=== PATIENT | female | born 1960 | race Caucasian/White ===

== ENCOUNTER → 2021-03-29 14:18 | Outpatient (CLI) | payer OTHER, SELFPAY ==
--- NOTE | 2021-03-29 | DI.RAD.S_ITS ---
PROCEDURE: XR KNEE LT 1TO2V INDICATIONS: Internal Derangment TECHNIQUE: 2 views of the knee were acquired. COMPARISON: None. FINDINGS: Bones: No fractures or dislocations. No suspicious bony lesions. Soft tissues: No joint effusion. No suspicious soft tissue calcifications. IMPRESSION: No acute osseous abnormality. Dictated by: Juan Antonio Salmon M.D. on 03/29/2021 at 16:06 Approved by: Juan Antonio Salmon M.D. on 03/29/2021 at 16:06
== END ==
PROVIDERS: PCP Physician Assistant; Referring Provider Physician Assistant; Visit Provider Physician Assistant
DX: M23.92 Unspecified internal derangement of left knee (principal)
CPT/HCPCS: 73560

== ENCOUNTER → 2021-04-24 07:23 | Outpatient (CLI) | payer OTHER, SELFPAY ==
--- NOTE | 2021-04-24 | DI.MRI.S_ITS ---
PROCEDURE: MR KNEE LT WO CON INDICATIONS: Unspecified internal derangement of left knee TECHNIQUE: Noncontrast sagittal PD fast spin echo and T2 fast spin echo with fat saturation, sagittal 3-D FLASH with fat saturation; coronal T1 spin echo and PD fast spin echo with fat saturation, and axial PD fast spin echo with fat saturation through the knee. COMPARISON: [facility], CR, XR KNEE LT 1TO2V, 03/29/2021, 14:16. FINDINGS: Image quality: Excellent. Menisci: Medial extrusion of the medial meniscus. Linear oblique and amorphous high signal intensity within the medial meniscal body and posterior horn is present demonstrating superior and inferior articular surface extension, indicating complex tearing. Lateral meniscus is intact. Cruciate ligaments: The anterior and posterior cruciate ligaments appear intact. Medial structures: The medial collateral ligament appears intact. Visualized portions of the pes anserinus tendons appear normal. There is mild T2 signal elevation within and adjacent to the tibial insertion of the semimembranosus. No abnormal bursal fluid. Lateral structures: The lateral collateral ligament demonstrates a small focus of high signal intensity at the femoral origin. The long and short heads of the biceps femoris tendon appear intact. The popliteus tendon appears normal. Iliotibial band appears normal. Anterior structures: The quadriceps and patellar tendons appear intact. Patellar alignment is normal. No femoral trochlear dysplasia or ventral trochlear prominence. No edema in the infrapatellar fat pad. Bones and cartilage: No bone marrow contusions or fractures. Mild tricompartmental periarticular osteophyte formation. Mild articular cartilage loss diffusely overlies the weight-bearing aspects of the medial femoral condyle and medial tibial plateau. Joint space: There is a small knee joint effusion and a small Jimenez's cyst. Normal appearing synovial plicae are incidentally noted. IMPRESSION: 1. Tricompartmental osteoarthritis with associated articular cartilage loss. 2. Medial meniscal tearing. 3. Low-grade partial thickness lateral collateral ligament tear. 4. Insertional tendinitis of the semimembranosus. 5. Knee joint effusion and Jimenez's cyst. Dictated by: Claire Bond M.D. on 04/24/2021 at 9:37 Approved by: Claire Bond M.D. on 04/24/2021 at 9:39
== END ==
PROVIDERS: PCP Physician Assistant; Referring Provider Physician Assistant; Visit Provider Physician Assistant
DX: S83.242A Other tear of medial meniscus, current injury, left knee, initial encounter (principal); S83.422A Sprain of lateral collateral ligament of left knee, initial encounter; M17.12 Unilateral primary osteoarthritis, left knee; M25.462 Effusion, left knee; M71.22 Synovial cyst of popliteal space [Baker], left knee
CPT/HCPCS: 73721

== ENCOUNTER → 2025-03-10 06:34 | Outpatient (CLI) | payer MEDICARE, OTHER, SELFPAY ==
--- NOTE | 2025-03-10 06:37 | DI.MRI.S_ITS ---
PROCEDURE: MR SHOULDER RT WO CON INDICATIONS: impingement syndrome of right shoulder TECHNIQUE: Noncontrast oblique coronal T2 fast spin echo with fat saturation, oblique sagittal T1 spin echo and T2 fast spin echo with fat saturation, axial T1 spin echo and T2 fast spin echo with fat saturation through the shoulder. COMPARISON: None. FINDINGS: Image quality: Excellent. Rotator cuff: Moderate supraspinatus and infraspinatus tendinopathy with high- grade partial-thickness tear of the supraspinatus measuring approximately 13 x 10 mm (AP by ML), with areas of full-thickness perforation, for example near the insertion of the anterior fibers (8/11). Of note, there appears to be fibrotic material adjacent to the tear, which makes exact measurement difficult. Moderate subscapularis tendinopathy without discrete tear. Sagittal images demonstrate no muscle atrophy. Bones and bursae: No bone marrow contusions or fractures. Mild acromioclavicular joint degenerative change with subchondral marrow edema. Mild superior subluxation of the humeral head. Mild glenohumeral joint chondrosis, without high-grade or full- thickness loss identified. Small volume subacromial/subdeltoid fluid with synovitis, which is likely in communication with trace glenohumeral joint effusion through supraspinatus full-thickness perforation described. Capsule and soft tissues: Degeneration of the glenoid labrum, most prominent at the posterior superior aspect, without discrete acute tear noted. The long head of the biceps tendon demonstrates normal location and morphology. IMPRESSION: 1. High-grade partial thickness tear of the supraspinatus measuring approximately 13 x 10 mm, with areas of full-thickness perforation. Superimposed moderate tendinopathy of the supraspinatus, infraspinatus, and subscapularis. 2. Small volume subacromial/subdeltoid fluid with synovitis, which is likely in communication with trace glenohumeral joint effusion. 3. Mild acromioclavicular joint degenerative change. Dictated by: Liz Ochoa M.D. on 03/12/2025 at 18:59 Approved by: Liz Ochoa M.D. on 03/12/2025 at 19:11
== END ==
LOC: MRI 06:36
PROVIDERS: PCP Student in an Organized Health Care Education/Training Program; Referring Provider Orthopaedic Surgery; Visit Provider Orthopaedic Surgery
DX: M75.111 Incomplete rotator cuff tear or rupture of right shoulder, not specified as traumatic (principal); M75.41 Impingement syndrome of right shoulder; M65.911 Unspecified synovitis and tenosynovitis, right shoulder
CPT/HCPCS: 73221